=== PATIENT | female | born 1995 | race Hispanic/Latino ===

== ENCOUNTER 2017-07-09 14:45 | Emergency (ER) | payer MEDICAID ==
[~2017-07-09 14:45] MED LIST: FERS325 PO; IBUP-2070 PO
[2017-07-09 15:30] LABS: APPEARANCE,URINE SL CLOUDY (CLEAR); BILIRUBIN,URINE NEGATIVE (NEGATIVE); COLOR,URINE YELLOW (YELLOW); GLUCOSE, URINE (UA) NEGATIVE (NEGATIVE); KETONES,URINE NEGATIVE (NEGATIVE); LEUKOCYTE ESTERASE ,URINE TRACE (NEGATIVE); NITRATE,URINE NEGATIVE (NEGATIVE); OCCULT BLOOD,URINE LARGE (NEGATIVE); PH,URINE 7.5 (5.0-8.0); PROTEIN,URINE TRACE (NEGATIVE)
[2017-07-09 15:33] LABS: HCG,QUAL RESULT NEGATIVE (NEGATIVE)
[2017-07-09] MEDS ORDERED: CEFTRIAXONE SODIUM 500 MG VIAL ONE (15:47)
[2017-07-09] MEDS ORDERED: AZITHROMYCIN 250 MG TABLET PO ONE (15:47)
[2017-07-09] MEDS ORDERED: ONDANSETRON ODT 4 MG TAB ONE (15:47)
[2017-07-09 15:48] LABS: BACTERIA,URINE Few /HPF (None Seen); RBC,URINE 51-100 /HPF (0-1)
[2017-07-09] MEDS ORDERED: LIDOCAINE HCL-MPF 1% 2ML VIAL ONE (15:48)
[2017-07-09 15:49] LABS: MUCUS,URINE Few LPF (None Seen); SQUAMOUS EPITHELIAL CELL,UR Few /HPF (0-2)
== END 2017-07-09 16:52 | disposition home or self-care (01) ==
LOC: EDH 14:45
DX: R10.2 Pelvic and perineal pain (principal); R35.0 Frequency of micturition; Z87.891 Personal history of nicotine dependence
CPT/HCPCS: 81001; 81025; 87486; 87797; 96372; 99284; J0696; J3490